=== PATIENT | female | born 1965 | race American Indian/Alaskan Native ===

== ENCOUNTER 2020-10-19 10:35 | Day surgery (SDC) | payer MEDICARE ==
[2020-10-19] MEDS ORDERED: SODIUM CHLORIDE 0.9% 1000 ML 1,000 ML ONE (11:11)
[2020-10-19] MEDS ORDERED: SODIUM CHLORIDE 0.9% 1000 ML 1,000 ML IV SCH (11:45)
[2020-10-19 11:58] LABS: Hematocrit 33.3 % (30.3-42.9); Hemoglobin 10.9 gm/dl (10.1-14.3); Mean Corpuscular HGB Conc 33 % (30-34); Mean Corpuscular Volume 109 fl (79-97); Platelet Count 183 K/mm3 (140-440); Red Blood Count 3.05 M/mm3 (3.65-5.03); Red Cell Distribution Width 16.5 % (13.2-15.2)
[2020-10-19] MEDS ORDERED: BUPIVACAINE/PF (0.5%) 5 MG/1 ML 30 ML VIAL INFILTRATI ONE (12:23)
[2020-10-19] MEDS ORDERED: MIDAZOLAM 2 MG/2 ML INJ ONE (12:24)
[2020-10-19] MEDS ORDERED: fentaNYL 100 MCG/2 ML INJ ONE (12:24)
[2020-10-19] MEDS ORDERED: PROTAMINE SULFATE 50 MG/5 ML INJ ONE (12:33)
[2020-10-19] MEDS ORDERED: BUPIVACAINE-EPINEPHRINE/PF 0.25%-1:200,000 (30 ML) VIAL INFILTRATI ONE (12:33)
[2020-10-19] MEDS ORDERED: SODIUM CHLORIDE 0.9% 250ML 250 ML ONE (12:33)
[2020-10-19] MEDS ORDERED: HEPARIN 10,000 UNITS/10 ML VIAL ONE ×2 (12:33→14:34)
[2020-10-19] MEDS ORDERED: NITROGLYCERIN SYRINGE 0 ML ONE (12:34)
[2020-10-19] MEDS ORDERED: GELATIN SPONGE SIZE 100 TP ONE ×2 (12:34→14:25)
[2020-10-19] MEDS ORDERED: THROMBIN (RECOMBINANT) 5,000 UNIT VIAL TP ONE ×2 (12:35→14:25)
--- NOTE | 2020-10-19 12:44 | Anesthesia Day of Surgery ---
Anesthesia Day of Surgery - Day of Surgery Patient Examined: Yes Patient H&P Reviewed: Yes Patient is NPO: Yes
--- NOTE | 2020-10-19 12:48 | Anesthesia Consultation ---
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 USES WHEELCHAIR.) Hx Psychiatric Problems: Yes (Anxiety/Depression) - Gastrointestinal Hx Gastroesophageal Reflux Disease: No (Heartburn) - Endocrine Hx Renal Disease: Yes Hx End Stage Renal Disease: Yes (Last HD yesterday) Hx Non-Insulin Dependent Diabetes: Yes - Hematic Hx Sickle Cell Disease: No - Other Systems Hx Alcohol Use: No Hx Substance Use: No Hx Cancer: No Hx Obesity: Yes
[2020-10-19] MEDS ORDERED: propofoL 200 MG/20 ML VIAL IV ONE ×5 (12:56→15:14)
[2020-10-19] MEDS ORDERED: ceFAZolin/STERILE WATER 2 GM/20 ML SYRINGE IV NR (13:00)
[2020-10-19] MEDS ORDERED: HYDROmorphone 1 MG/1 ML INJ IV PRN ×2 (13:00)
[2020-10-19] MEDS ORDERED: ONDANSETRON 4 MG/2 ML INJ IV PRN (13:00)
[2020-10-19] MEDS ORDERED: LIDOCAINE PF 100 MG/5 ML (CARDIAC SYRINGE) IV ONE (13:02)
[2020-10-19] MEDS ORDERED: SODIUM CHLORIDE 0.9% 250 ML IVPB IV ONE (14:47)
[2020-10-19] MEDS ORDERED: HEPARIN 10,000 UNITS/10 ML VIAL IV ONE (14:47)
[2020-10-19] MEDS ORDERED: ONDANSETRON 4 MG/2 ML INJ ONE (15:35)
--- NOTE | 2020-10-19 15:39 | Post Operative Note ---
Date of procedure: 10/19/20 Pre-op diagnosis: ESRD Post-op diagnosis: same Procedure: Left Arm AV Graft Insertion Anesthesia: MAC, regional Surgeon: MELISSA CANSECO Estimated blood loss: other (25ml) Pathology: none Condition: stable Disposition: PACU
[2020-10-19] MEDS ORDERED: traMADol 50 MG TAB PO PRN (15:41)
--- NOTE | 2020-10-19 15:41 | Short Stay Summary ---
Short Stay Documentation Date of service: 10/19/20 - History H&P: dictated Past Medical History: diabetes, ESRD, hypertension - Allergies and Medications Current Medications: Allergies NEURONTIN [HALLUCINATIONS] Adverse Reaction (Intermediate, Uncoded 10/13/20 11:47) Unknown ASPIRIN [CHEST TIGHTNESS] Adverse Reaction (Uncoded 10/13/20 11:51) Unknown PERCOCET [HALLUCINATIONS] Adverse Reaction (Uncoded 10/13/20 11:51) Unknown Home Medications Medication Instructions Recorded Confirmed Last Taken Type Apixaban [Eliquis] 5 mg PO BID 10/13/20 10/19/20 10/09/20 09:00 History Clopidogrel [Plavix] 75 mg PO QDAY 10/13/20 10/19/20 10/16/20 09:00 History Furosemide [Lasix] 40 mg PO DAILY 10/13/20 10/19/20 10/15/20 09:00 History Insulin Aspart Prot/Aspart(Nf) 5 units SQ BID 10/13/20 10/19/20 10/18/20 17:00 History [Novolog Mix 70/30] NIFEdipine [Nifedipine ER] 30 mg PO DAILY 10/13/20 10/19/20 10/18/20 09:00 History Active Medications Cefazolin Sodium (Cefazolin/Sterile Water 2 Gm/20 Ml Syringe) 2 gm IV PREOP NR Stop: 10/19/20 23:59 Hydromorphone HCl (Hydromorphone 1 Mg/1 Ml Inj) 0.25 mg IV Q10MIN PRN PRN Reason: Pain, Moderate (4-6) Stop: 10/19/20 18:00 Hydromorphone HCl (Hydromorphone 1 Mg/1 Ml Inj) 0.5 mg IV Q10MIN PRN PRN Reason: Pain , Severe (7-10) Stop: 10/19/20 18:00 Sodium Chloride (Nacl 0.9% 1000 Ml) 1,000 mls @ 42 mls/hr IV DIRECT CAPRI Last Admin: 10/19/20 11:55 Dose: 42 mls/hr Documented by: Ondansetron HCl (Ondansetron 4 Mg/2 Ml Inj) 4 mg IV ONCE PRN PRN Reason: Nausea And Vomiting Stop: 10/19/20 18:00 - Physical exam General appearance: no acute distress Lungs: Normal air movement Heart: Regular rate Extremities: no ischemia - Hospital course Hospital course: the patient was taken to the operating room and had a left arm av graft insertion performed. please refer to the operative note concerning details of the procedure. the patient tolerated the procedure well and was discharged home in stable condition. - Disposition Condition at discharge: Stable Disposition: [id number] TO HOME OR SELFCARE Short Stay Discharge Plan Follow up with: CHUY LIND [Other] - 7 Days
[2020-10-19] MEDS ORDERED: HEPARIN 10,000 UNIT/1 ML VIAL ONE (16:09)
[2020-10-19] MEDS ORDERED: HEPARIN 10,000 UNIT/1 ML VIAL IV PRN (16:25)
--- NOTE | 2020-10-19 17:16 | Operative Report ---
DATE OF SURGERY: 10/19/2020 STAFF SURGEON: Dr. Adonay Valentin. PREOPERATIVE DIAGNOSIS: End-stage renal disease. POSTOPERATIVE DIAGNOSIS: End-stage renal disease. PROCEDURE PERFORMED: Left arm AV graft insertion. COMPLICATIONS: None. ESTIMATED BLOOD LOSS: 25 mL ANESTHESIA: Regional block with MAC. INDICATIONS FOR PROCEDURE: This is a 54-year-old female with end-stage renal disease on hemodialysis, in need of upper extremity accesses. The patient did not have any suitable veins for fistula creation and was slated to undergo AV graft insertion. The patient was explained the risks, benefits, and alternatives of procedure, expressed understanding and wished to proceed. DESCRIPTION OF PROCEDURE: After appropriate consent was obtained, the patient was brought back to the operating room and placed on the operating table in supine position with left arm extended. The patient was given appropriate medications for deep sedation. The left arm was then prepared and draped in usual sterile fashion with ChloraPrep. Appropriate preoperative antibiotics were administered. Appropriate timeout was performed indicating the correct patient, procedure, and site of procedure. We then began the operation by making a longitudinal incision near the antecubital fossa. This was carried through the subcutaneous tissue with combination of blunt dissection and electrocautery. Dissection was continued down to the level of the bicep aponeurosis, which allowed us to expose the brachial artery, which was found to be suitable for arterial inflow and was mobilized for appropriate distance both proximally and distally. We then proceeded to make a transverse incision near the axilla. This was carried through the subcutaneous tissue with combination of blunt dissection and electrocautery. Dissection was continued down through the fascia overlying the axillary neurovascular bundle. The axillary vein was identified. It was somewhat marginal, but thought to be suitable for venous outflow. It was then mobilized for appropriate distance both proximally and distally. We then proceeded to create a subcutaneous tunnel between the 2 incision sites bringing through a 4-7 mm Propaten graft. The graft was appropriately spatulated. The patient was given 5000 units of unfractionated heparin after appropriate timeout elapsed. Vascular clamps were placed in the brachial artery, both proximally and distally. Longitudinal arteriotomy was made with 11 blade, extended with Bejarano scissors. End-to-side anastomosis was performed with a running 6-0 Prolene suture. Once complete, flow was established through the graft, had a nice pulsatile flow. Graft was then cut to an appropriate length and spatulated. Vascular clamps were then placed on the axillary vein, both proximally and distally. Longitudinal venotomy was made with 11 blade, extended with Bejarano scissors. An end-to-side anastomosis was performed with a running 5-0 Prolene suture. Once complete, flow was established through the graft, had a nice palpable thrill. We then proceeded to obtain hemostasis along the suture lines, which was obtained with hemostatic agents. Once we were satisfied with the hemostasis, we then proceeded to close both wounds with a deep subcutaneous layer with interrupted 3-0 PDS and then skin was approximated with richard. Appropriate dressing was placed. The patient tolerated the procedure well, emerged from the deep sedation, and was sent to recovery in stable condition. All sponge, instrument and needle counts were correct at completion of the operation. TID: [id number] RECEIPT: [id number] EVON/JASSI
--- NOTE | 2020-10-19 18:17 | Post Anesthesia Evaluation ---
- Post Anesthesia Evaluation Patient Participated: Yes Airway Patent: Yes Stable Respiratory Function: Yes Nausea/Vomiting: No Temp > 96.8F: Yes Pain Manageable: Yes Adequeate Hydration: Yes Anesthesia Complications: No Block Receding Appropriately: Not Applicable Patient on Ventilator: No
[2020-10-19 20:16] VITALS: BP 156/81
== END 2020-10-19 10:36 | disposition home or self-care (01) ==
LOC: EDBD 10:35 → OR 10:35
PROVIDERS: ATTEND Surgery Vascular Surgery
DX: I13.2 Hypertensive heart and chronic kidney disease with heart failure and with stage 5 chronic kidney disease, or end stage renal disease (principal); E11.22 Type 2 diabetes mellitus with diabetic chronic kidney disease; N18.6 End stage renal disease; I50.9 Heart failure, unspecified; E78.00 Pure hypercholesterolemia, unspecified; G47.30 Sleep apnea, unspecified; K21.9 Gastro-esophageal reflux disease without esophagitis; E66.9 Obesity, unspecified; F41.9 Anxiety disorder, unspecified; Z68.41 Body mass index [BMI] 40.0-44.9, adult; Z88.6 Allergy status to analgesic agent; Z88.8 Allergy status to other drugs, medicaments and biological substances; Z79.4 Long term (current) use of insulin; Z79.899 Other long term (current) drug therapy; Z98.41 Cataract extraction status, right eye; Z98.890 Other specified postprocedural states; Z86.73 Personal history of transient ischemic attack (TIA), and cerebral infarction without residual deficits
CPT/HCPCS: 36415; 36830; 64415; 80048; 82962; 85027; A4649; C1768; J0690; J1644; J2001; J2250; J2405; J2704; J3010; J7030; J7050; 64450; J2720